=== PATIENT | male | born 1935 | race Two or more races ===

== ENCOUNTER 2018-04-15 14:14 | Inpatient (IN) | payer MEDICARE, OTHER ==
[~2018-04-15] VITALS: Ht 167.6 cm; Wt 59.1 kg
[~2018-04-15 14:14] MED LIST: CLOP75TA35 PO; GLIM4TAB79 PO; LISI10TA4 PO; METF500T PO; METO25TA6 PO; OMEP20CA10 PO; OXCA150T PO
[2018-04-15 14:38] LABS: BASOPHILS # (AUTO) 0.1 X10'3 (0-0.2); BASOPHILS % (AUTO) 0.8 % (0-1); EOSINOPHILS # (AUTO) 0.5 X10'3 (0-0.9); EOSINOPHILS % (AUTO) 5.3 % (0-6); HEMATOCRIT 34.9 % (42.0-52.0); HEMOGLOBIN 11.6 g/dl (14.0-17.9); LYMPHOCYTES # (AUTO) 1.6 X10'3 (1.1-4.8); LYMPHOCYTES % (AUTO) 16.5 % (21-51); MEAN CORPUSCULAR HGB CONC 33.3 % (33.0-36.5); MEAN CORPUSCULAR VOLUME 84.1 FL (78-98); MEAN PLATELET VOLUME 8.5 FL (7.4-10.4); MONOCYTES # (AUTO) 0.7 X10'3 (0-0.9); MONOCYTES % (AUTO) 7.5 % (2-12); NEUTROPHILS # (AUTO) 6.8 X10'3 (1.8-7.7); NEUTROPHILS % (AUTO) 69.9 % (42-75); PLATELET COUNT 149 X10'3 (140-440); RED BLOOD COUNT 4.15 X10'6 (4.70-6.10); RED CELL DISTRIBUTION WIDTH 15.4 % (11.5-14.5); WHITE BLOOD COUNT 9.7 X10'3 (4.5-11.0)
[2018-04-15 14:48] LABS: INR 0.9 INR; PARTIAL THROMBOPLASTIN TIME 25 SECONDS (22-32); PROTHROMBIN TIME 9.6 SECONDS (9.0-12.0)
[2018-04-15 14:53] LABS: ALANINE AMINOTRANSFERASE 23 U/L (12-78); ALBUMIN 3.5 G/DL (3.4-5.0); ALKALINE PHOSPHATASE 62 IU/L (46-116); ANION GAP 12 (8-16); ASPARTATE AMINO TRANSFERASE 13 U/L (10-37); BILIRUBIN,TOTAL 0.3 MG/DL (0.1-1.0); BLOOD UREA NITROGEN 10 MG/DL (7-18); BUN/CREATININE RATIO 9.7 (5.4-32.0); CALCIUM 9.3 MG/DL (8.5-10.1); CHLORIDE 99 MMOL/L (99-107); CREATININE 1.03 MG/DL (0.60-1.10); GLUCOSE 145 MG/DL (70-104); POTASSIUM 3.9 MMOL/L (3.5-5.1); SODIUM 135 MMOL/L (135-145); TOTAL PROTEIN 7.1 G/DL (6.4-8.2); eGFR 69 ML/MIN
[2018-04-15 14:57] LABS: TROPONIN I 0.08 NG/ML (0.0-0.05)
[2018-04-15] MEDS ORDERED: ondansetron/PF 4mg/2ml inj IV PRN (15:25)
[2018-04-15] MEDS ORDERED: mag hydrox/Alum hydrox/simeth 30ml oral suspension PO PRN (15:25)
[2018-04-15] MEDS ORDERED: magnesium hydroxide 30ml (MOM) UD suspension PO PRN (15:25)
[2018-04-15] MEDS ORDERED: acetaminophen 325mg tablet PO PRN (15:25)
[2018-04-15] MEDS ORDERED: METO25TA6 PO (15:29)
[2018-04-15] MEDS ORDERED: ATOR20TA PO (15:29)
[2018-04-15] MEDS ORDERED: OXCA300T PO (15:29)
[2018-04-15 15:47] LABS: CHOL/HDL RATIO 4.8 (0.00-4.99); CHOLESTEROL 252 MG/DL (0-200); HDL CHOLESTEROL 52 MG/DL (35-60); LDL CHOLESTEROL 176 MG/DL (50-100); TRIGLYCERIDES 139 MG/DL (20-135)
[2018-04-15] MEDS ORDERED: aspirin 81mg tablet.DR PO ONE (15:55)
[2018-04-15 18:00] VITALS: BP 161/68
[2018-04-15] MEDS: normal saline 1000ml 1,000 ML IV SCH (18:56)
[2018-04-15] MEDS ORDERED: non-formulary drug (Omeprazole 1 CAP) PO SCH (20:00)
[2018-04-15 22:00] VITALS: BP 149/66
[2018-04-15] MEDS: oxcarbazepine 150mg tablet PO SCH (22:10)
[2018-04-15] MEDS: pantoprazole 40mg Tablet.DR PO SCH (22:10)
[2018-04-15] MEDS: heparin, porcine 5000 units/ml vial SQ SCH (22:17)
[2018-04-15] MEDS: metFORMIN 500mg tablet PO SCH (22:24)
[2018-04-16 02:00] VITALS: BP 128/64
[2018-04-16 05:00] VITALS: BP 120/60
[2018-04-16] MEDS: normal saline 1000ml 1,000 ML IV SCH ×2 (05:00→11:22)
[2018-04-16 06:41] LABS: BASOPHILS % (AUTO) 0.3 % (0-1); EOSINOPHILS # (AUTO) 0.6 X10'3 (0-0.9); EOSINOPHILS % (AUTO) 7.3 % (0-6); HEMATOCRIT 31.4 % (42.0-52.0); HEMOGLOBIN 10.5 g/dl (14.0-17.9); LYMPHOCYTES % (AUTO) 12.2 % (21-51); MEAN CORPUSCULAR HEMOGLOBIN 28.3 PG (27.0-31.0); MEAN CORPUSCULAR HGB CONC 33.4 % (33.0-36.5); MEAN CORPUSCULAR VOLUME 84.7 FL (78-98); MEAN PLATELET VOLUME 8.8 FL (7.4-10.4); MONOCYTES # (AUTO) 0.5 X10'3 (0-0.9); MONOCYTES % (AUTO) 6.1 % (2-12); NEUTROPHILS # (AUTO) 6.3 X10'3 (1.8-7.7); NEUTROPHILS % (AUTO) 74.1 % (42-75); PLATELET COUNT 120 X10'3 (140-440); RED CELL DISTRIBUTION WIDTH 15.1 % (11.5-14.5); WHITE BLOOD COUNT 8.5 X10'3 (4.5-11.0)
[2018-04-16 06:50] LABS: ANION GAP 10 (8-16); BLOOD UREA NITROGEN 6 MG/DL (7-18); BUN/CREATININE RATIO 7.1 (5.4-32.0); CALCIUM 8.3 MG/DL (8.5-10.1); CHLORIDE 101 MMOL/L (99-107); CREATININE 0.85 MG/DL (0.60-1.10); GLUCOSE 94 MG/DL (70-104); POTASSIUM 3.5 MMOL/L (3.5-5.1); SODIUM 136 MMOL/L (135-145); TOTAL CARBON DIOXIDE 25.1 MMOL/L (24-32); eGFR 87 ML/MIN
[2018-04-16] MEDS: aspirin 81mg tablet.DR PO SCH (08:00)
[2018-04-16] MEDS: pantoprazole 40mg Tablet.DR PO SCH ×2 (08:00→20:00)
[2018-04-16] MEDS: atorvastatin 20mg tablet PO SCH (08:00)
[2018-04-16] MEDS: oxcarbazepine 150mg tablet PO SCH ×2 (08:00→20:00)
[2018-04-16] MEDS: clopidogrel 75mg tablet PO SCH (08:00)
[2018-04-16] MEDS: metFORMIN 500mg tablet PO SCH ×2 (08:00→20:00)
[2018-04-16] MEDS: heparin, porcine 5000 units/ml vial SQ SCH ×2 (08:24→20:25)
[2018-04-16] MEDS ORDERED: aspirin 300mg supp.rect RC ONE (08:45)
[2018-04-16 09:00] VITALS: BP 142/62
[2018-04-16 15:00] VITALS: BP 125/59
[2018-04-16 18:00] VITALS: BP 122/59
[2018-04-16] MEDS: dextrose 5%-normal saline 1,000 ML IV SCH (18:10)
[2018-04-16 22:00] VITALS: BP 155/66
[2018-04-17 02:00] VITALS: BP 166/70
[2018-04-17] MEDS: dextrose 5%-normal saline 1,000 ML IV SCH (05:40)
[2018-04-17 06:00] VITALS: BP 174/73
[2018-04-17 06:16] LABS: BASOPHILS % (AUTO) 0.3 % (0-1); EOSINOPHILS # (AUTO) 0.7 X10'3 (0-0.9); EOSINOPHILS % (AUTO) 9.9 % (0-6); HEMATOCRIT 31.9 % (42.0-52.0); HEMOGLOBIN 10.7 g/dl (14.0-17.9); LYMPHOCYTES # (AUTO) 0.8 X10'3 (1.1-4.8); LYMPHOCYTES % (AUTO) 12.5 % (21-51); MEAN CORPUSCULAR HEMOGLOBIN 28.2 PG (27.0-31.0); MEAN CORPUSCULAR HGB CONC 33.5 % (33.0-36.5); MEAN CORPUSCULAR VOLUME 83.9 FL (78-98); MEAN PLATELET VOLUME 9.1 FL (7.4-10.4); MONOCYTES # (AUTO) 0.5 X10'3 (0-0.9); NEUTROPHILS # (AUTO) 4.6 X10'3 (1.8-7.7); NEUTROPHILS % (AUTO) 69.3 % (42-75); PLATELET COUNT 102 X10'3 (140-440); RED BLOOD COUNT 3.79 X10'6 (4.70-6.10); RED CELL DISTRIBUTION WIDTH 15.6 % (11.5-14.5); WHITE BLOOD COUNT 6.6 X10'3 (4.5-11.0)
[2018-04-17 06:26] LABS: ALBUMIN 2.9 G/DL (3.4-5.0); ANION GAP 11 (8-16); BLOOD UREA NITROGEN 4 MG/DL (7-18); BUN/CREATININE RATIO 5.3 (5.4-32.0); CALCIUM 8.1 MG/DL (8.5-10.1); CHLORIDE 104 MMOL/L (99-107); CREATININE 0.75 MG/DL (0.60-1.10); GLUCOSE 132 MG/DL (70-104); POTASSIUM 3.2 MMOL/L (3.5-5.1); SODIUM 139 MMOL/L (135-145); TOTAL CARBON DIOXIDE 24.1 MMOL/L (24-32); eGFR > 90 ML/MIN
[2018-04-17] MEDS ORDERED: potassium Cl 20 mEq SR tablet PO PRN ×2 (07:00)
[2018-04-17] MEDS ORDERED: potassium Cl 40MEQ/NS 500ml 500 ML IV PRN ×2 (07:00)
[2018-04-17] MEDS ORDERED: LIDOcaine 1% 30ml vial 5 ML in potassium Cl 40MEQ/NS 500ml 500 ML IV ONE (07:20)
[2018-04-17] MEDS: heparin, porcine 5000 units/ml vial SQ SCH ×2 (08:00→20:00)
[2018-04-17 08:30] VITALS: BP 177/80
[2018-04-17] MEDS: metFORMIN 500mg tablet PO SCH ×2 (08:45→20:28)
[2018-04-17] MEDS: aspirin 81mg tablet.DR PO SCH (08:45)
[2018-04-17] MEDS: oxcarbazepine 150mg tablet PO SCH ×2 (08:45→20:28)
[2018-04-17] MEDS: pantoprazole 40mg Tablet.DR PO SCH ×2 (08:45→20:28)
[2018-04-17] MEDS: atorvastatin 20mg tablet PO SCH (08:45)
[2018-04-17] MEDS: clopidogrel 75mg tablet PO SCH (08:45)
[2018-04-17 14:13] VITALS: BP 162/69
[2018-04-17 18:00] VITALS: BP 160/68
[2018-04-17 22:00] VITALS: BP 181/80
[2018-04-18 02:05] VITALS: BP 162/77
[2018-04-18 05:40] LABS: BASOPHILS % (AUTO) 0.4 % (0-1); EOSINOPHILS # (AUTO) 0.6 X10'3 (0-0.9); EOSINOPHILS % (AUTO) 9.7 % (0-6); HEMOGLOBIN 10.8 g/dl (14.0-17.9); LYMPHOCYTES # (AUTO) 0.7 X10'3 (1.1-4.8); LYMPHOCYTES % (AUTO) 12.1 % (21-51); MEAN CORPUSCULAR HEMOGLOBIN 28.4 PG (27.0-31.0); MEAN CORPUSCULAR HGB CONC 33.8 % (33.0-36.5); MEAN PLATELET VOLUME 8.8 FL (7.4-10.4); MONOCYTES # (AUTO) 0.5 X10'3 (0-0.9); MONOCYTES % (AUTO) 8.8 % (2-12); NEUTROPHILS # (AUTO) 4.1 X10'3 (1.8-7.7); PLATELET COUNT 102 X10'3 (140-440); RED BLOOD COUNT 3.81 X10'6 (4.70-6.10); RED CELL DISTRIBUTION WIDTH 15.3 % (11.5-14.5)
[2018-04-18 06:00] VITALS: BP 159/73
[2018-04-18 06:20] LABS: ALBUMIN 2.8 G/DL (3.4-5.0); ANION GAP 9 (8-16); BLOOD UREA NITROGEN 4 MG/DL (7-18); BUN/CREATININE RATIO 4.4 (5.4-32.0); CHLORIDE 102 MMOL/L (99-107); CREATININE 0.91 MG/DL (0.60-1.10); GLUCOSE 101 MG/DL (70-104); MAGNESIUM 1.6 MG/DL (1.5-2.4); POTASSIUM 3.4 MMOL/L (3.5-5.1); SODIUM 136 MMOL/L (135-145); TOTAL CARBON DIOXIDE 24.6 MMOL/L (24-32); eGFR 80 ML/MIN
[2018-04-18] MEDS ORDERED: LIDOcaine 1% 30ml vial 5 ML in potassium Cl 40MEQ/NS 500ml 500 ML IV PRN (06:40)
[2018-04-18] MEDS: heparin, porcine 5000 units/ml vial SQ SCH (08:00)
[2018-04-18] MEDS ORDERED: metoprolol tartrate 25mg tablet PO SCH (08:00)
[2018-04-18 08:20] VITALS: BP 136/75
[2018-04-18] MEDS: pantoprazole 40mg Tablet.DR PO SCH (08:20)
[2018-04-18] MEDS: clopidogrel 75mg tablet PO SCH (08:20)
[2018-04-18] MEDS: atorvastatin 20mg tablet PO SCH (08:20)
[2018-04-18] MEDS: metFORMIN 500mg tablet PO SCH (08:20)
[2018-04-18] MEDS: aspirin 81mg tablet.DR PO SCH (08:20)
[2018-04-18] MEDS: oxcarbazepine 150mg tablet PO SCH (08:21)
[2018-04-18 12:07] VITALS: BP 151/63
== END 2018-04-18 13:35 | DRG 65 ==
LOC: ER 14:15 → ED HOLD 15:22 → EDBEDREQ 15:39 → ORTHO 4S 17:49
PROVIDERS: ADMIT Family Medicine; ATTEND Internal Medicine
DX: I63.9 Cerebral infarction, unspecified (principal); G81.94 Hemiplegia, unspecified affecting left nondominant side; R29.810 Facial weakness; K21.9 Gastro-esophageal reflux disease without esophagitis; I10 Essential (primary) hypertension; E78.5 Hyperlipidemia, unspecified; G40.909 Epilepsy, unspecified, not intractable, without status epilepticus; E11.65 Type 2 diabetes mellitus with hyperglycemia; G89.29 Other chronic pain; E87.6 Hypokalemia; R47.9 Unspecified speech disturbances; R13.10 Dysphagia, unspecified; R74.8 Abnormal levels of other serum enzymes; I25.10 Atherosclerotic heart disease of native coronary artery without angina pectoris; Z90.49 Acquired absence of other specified parts of digestive tract; Z79.899 Other long term (current) drug therapy; Z79.84 Long term (current) use of oral hypoglycemic drugs; Z79.02 Long term (current) use of antithrombotics/antiplatelets; Z85.46 Personal history of malignant neoplasm of prostate; Z86.73 Personal history of transient ischemic attack (TIA), and cerebral infarction without residual deficits; Z83.2 Family history of diseases of the blood and blood-forming organs and certain disorders involving the immune mechanism; Z82.49 Family history of ischemic heart disease and other diseases of the circulatory system; Z80.0 Family history of malignant neoplasm of digestive organs; Z80.6 Family history of leukemia; Z83.71 Family history of colonic polyps
CPT/HCPCS: 36415; 70450; 70544; 70551; 71045; 80048; 80053; 80061; 82948; 83036; 83735; 84484; 85025; 85610; 85730; 87070; 92523; 92616; 93005; 93306; 93880; 97110; 97112; 97116; 97162; 97530; A4565; J1644; J3480; J3490; J7030; J7042

== ENCOUNTER 2018-05-26 07:15 | Observation (INO) | payer MEDICARE, OTHER ==
[2018-05-26] VITALS (10 sets, daily range): BP systolic 151–175; BP diastolic 76–93
[~2018-05-26] VITALS: Ht 167.6 cm; Wt 66.3 kg
[~2018-05-26 07:15] MED LIST changes: +ATOR20TA PO; -OXCA150T PO; +OXCA300T PO
[2018-05-26] MEDS ORDERED: normal saline 1000ml 1,000 ML IV ONE ×2 (07:45→09:20)
[2018-05-26] MEDS ORDERED: dextrose 5%-normal saline 1,000 ML IV ONE ×2 (08:05→08:25)
[2018-05-26 08:18] LABS: BASOPHILS % (AUTO) 0.4 % (0-1); EOSINOPHILS # (AUTO) 0.3 X10'3 (0-0.9); EOSINOPHILS % (AUTO) 3.3 % (0-6); HEMOGLOBIN 11.1 g/dl (14.0-17.9); LYMPHOCYTES # (AUTO) 1.4 X10'3 (1.1-4.8); LYMPHOCYTES % (AUTO) 13.3 % (21-51); MEAN CORPUSCULAR HEMOGLOBIN 28.9 PG (27.0-31.0); MEAN CORPUSCULAR HGB CONC 33.6 % (33.0-36.5); MEAN CORPUSCULAR VOLUME 86.1 FL (78-98); MEAN PLATELET VOLUME 8.7 FL (7.4-10.4); MONOCYTES # (AUTO) 0.6 X10'3 (0-0.9); PLATELET COUNT 146 X10'3 (140-440); RED BLOOD COUNT 3.83 X10'6 (4.70-6.10); WHITE BLOOD COUNT 10.4 X10'3 (4.5-11.0)
[2018-05-26 08:27] LABS: ALANINE AMINOTRANSFERASE 34 U/L (12-78); ALBUMIN 2.7 G/DL (3.4-5.0); ALBUMIN/GLOBULIN RATIO 0.6 (1.1-1.5); ALKALINE PHOSPHATASE 358 IU/L (46-116); ANION GAP 12 (8-16); ASPARTATE AMINO TRANSFERASE 32 U/L (10-37); BILIRUBIN,TOTAL 0.4 MG/DL (0.1-1.0); BLOOD UREA NITROGEN 25 MG/DL (7-18); BUN/CREATININE RATIO 26.9 (5.4-32.0); CHLORIDE 103 MMOL/L (99-107); CREATININE 0.93 MG/DL (0.60-1.10); GLUCOSE 157 MG/DL (70-104); POTASSIUM 3.7 MMOL/L (3.5-5.1); SODIUM 139 MMOL/L (135-145); TOTAL CARBON DIOXIDE 24.3 MMOL/L (24-32); TOTAL PROTEIN 7.3 G/DL (6.4-8.2); eGFR 78 ML/MIN
[2018-05-26 10:25] LABS: CLARITY,URINE CLEAR (Clear); COLOR,URINE YELLOW (Yellow); GLUCOSE, URINE NEGATIVE (Neg); KETONES,URINE 15 mg/dl (Neg); LEUKOCYTE ESTERASE ,URINE NEGATIVE (Neg); NITRITES, URINE NEGATIVE (Neg); OCCULT BLOOD,URINE NEGATIVE (Neg); PROTEIN,URINE TRACE mg/dl (Neg)
[2018-05-26 10:29] LABS: UA COLLECTION TYPE STRAIGHT CATH
[2018-05-26 10:31] LABS: BACTERIA,URINE FEW /HPF (Neg); MUCUS STRANDS MODERATE /LPF (Neg); RBC,URINE 0-2 /HPF (0-2); SQUAMOUS EPITHELIAL CELL,UR MODERATE /LPF (FEW); WBC,URINE 0-4 /HPF (0-4)
[2018-05-26] MEDS ORDERED: tranexamic acid 100mg/ml inj. TP ONE (12:15)
[2018-05-26] MEDS ORDERED: oxymetazoline 15 ML nasal spray NS ONE (12:15)
[2018-05-26] MEDS ORDERED: LIDOcaine Viscous 15ml cup MM ONE (12:40)
[2018-05-26] MEDS ORDERED: LIDOcaine Viscous 15ml cup MM PRN (13:00)
[2018-05-26 13:20] LABS: BASOPHILS % (AUTO) 0.4 % (0-1); EOSINOPHILS # (AUTO) 0.3 X10'3 (0-0.9); EOSINOPHILS % (AUTO) 2.7 % (0-6); HEMATOCRIT 33.1 % (42.0-52.0); LYMPHOCYTES # (AUTO) 1.5 X10'3 (1.1-4.8); LYMPHOCYTES % (AUTO) 13.6 % (21-51); MEAN CORPUSCULAR HEMOGLOBIN 28.6 PG (27.0-31.0); MEAN CORPUSCULAR HGB CONC 33.1 % (33.0-36.5); MEAN CORPUSCULAR VOLUME 86.3 FL (78-98); MEAN PLATELET VOLUME 9.3 FL (7.4-10.4); MONOCYTES # (AUTO) 0.6 X10'3 (0-0.9); MONOCYTES % (AUTO) 5.3 % (2-12); NEUTROPHILS # (AUTO) 8.5 X10'3 (1.8-7.7); PLATELET COUNT 145 X10'3 (140-440); RED BLOOD COUNT 3.84 X10'6 (4.70-6.10); RED CELL DISTRIBUTION WIDTH 15.8 % (11.5-14.5); WHITE BLOOD COUNT 10.9 X10'3 (4.5-11.0)
[2018-05-26] MEDS ORDERED: tranexamic acid 100mg/ml inj. IV ONE (13:20)
[2018-05-26] MEDS ORDERED: tranexamic acid inj. 660 MG in normal saline 100ml IV soln 93.4 ML IV ONE (13:45)
[2018-05-26] MEDS ORDERED: ondansetron/PF 4mg/2ml inj IV ONE (14:20)
[2018-05-26] MEDS ORDERED: clindamycin phosphate inj 300 MG in dextrose 5%-water 50ml 48 ML IV SCH (16:00)
[2018-05-26] MEDS ORDERED: magnesium hydroxide 30ml (MOM) UD suspension PO PRN (16:10)
[2018-05-26] MEDS ORDERED: acetaminophen 325mg tablet PO PRN (16:10)
[2018-05-26] MEDS ORDERED: morphine 4 MG/ML inj SYRINge IV PRN ×2 (16:10)
[2018-05-26] MEDS ORDERED: mag hydrox/Alum hydrox/simeth 30ml oral suspension PO PRN (16:10)
[2018-05-26] MEDS ORDERED: ondansetron/PF 4mg/2ml inj IV PRN (16:10)
[2018-05-26] MEDS ORDERED: METO25TA6 PO (16:12)
[2018-05-26] MEDS ORDERED: ONDA4TAB6 PO (16:17)
[2018-05-26] MEDS ORDERED: ACET-2119 PO (16:17)
[2018-05-26] MEDS ORDERED: MESSAGE TO PHARMACY PO ONE (18:45)
[2018-05-26] MEDS ORDERED: insulin Lispro (HumaLOG) vial - multi-dose SQ SCH (18:45)
[2018-05-26] MEDS ORDERED: glucagon, human recombinant 1mg kit SUBCUT PRN (18:45)
[2018-05-26] MEDS ORDERED: dextrose ORAL solution 15 GM/59 ML bottle PO PRN ×2 (18:45)
[2018-05-26] MEDS ORDERED: dextrose 50%-water 50ml dispensing syringe IV PRN ×2 (18:45)
[2018-05-26] MEDS ORDERED: fentaNYL/PF 50MCG/1 ML 2ML syringe ONE (19:18)
[2018-05-26] MEDS ORDERED: MIDAZolam 5mg/5ml vial ONE (19:18)
[2018-05-26] MEDS ORDERED: LIDOcaine Viscous 15ml cup ONE (19:18)
[2018-05-26] MEDS: oxcarbazepine 150mg tablet PO SCH (20:00)
[2018-05-26] MEDS ORDERED: non-formulary drug (Ondansetron Hcl (Zofran) 1 TAB) PO SCH (20:00)
[2018-05-26] MEDS: pantoprazole 40mg Tablet.DR PO SCH (20:00)
[2018-05-26] MEDS ORDERED: metoprolol tartrate 25mg tablet PO SCH (20:00)
[2018-05-26] MEDS: acetaminophen 325mg tablet PO SCH (20:00)
[2018-05-26] MEDS ORDERED: ceFAZolin 1GM/D5W- ADD-VANTAGE 50 ML IV SCH (20:55)
[2018-05-26] MEDS: insulin glargine (Lantus) pen - multi-dose SQ SCH (21:00)
[2018-05-26] MEDS: atorvastatin 20mg tablet PO SCH (21:00)
[2018-05-26] MEDS: normal saline 1000ml 1,000 ML IV SCH (22:16)
[2018-05-26] MEDS: ceFAZolin 1GM/D5W- ADD-VANTAGE 50 ML IV SCH (23:11)
[2018-05-26] MEDS ORDERED: morphine 2 MG/ML inj. syringe IV PRN ×2 (23:30)
[2018-05-27 00:11] VITALS: BP 148/82
[2018-05-27] MEDS: ceFAZolin 1GM/D5W- ADD-VANTAGE 50 ML IV SCH (04:56)
[2018-05-27] MEDS ORDERED: ceFAZolin 1GM/D5W- ADD-VANTAGE 50 ML IV ONE (05:00)
[2018-05-27 05:06] LABS: BASOPHILS % (AUTO) 0.2 % (0-1); EOSINOPHILS # (AUTO) 0.4 X10'3 (0-0.9); EOSINOPHILS % (AUTO) 3.2 % (0-6); HEMATOCRIT 30.1 % (42.0-52.0); HEMOGLOBIN 10.1 g/dl (14.0-17.9); LYMPHOCYTES # (AUTO) 1.2 X10'3 (1.1-4.8); LYMPHOCYTES % (AUTO) 8.3 % (21-51); MEAN CORPUSCULAR HEMOGLOBIN 28.4 PG (27.0-31.0); MEAN CORPUSCULAR HGB CONC 33.4 % (33.0-36.5); MEAN PLATELET VOLUME 8.7 FL (7.4-10.4); MONOCYTES # (AUTO) 0.8 X10'3 (0-0.9); MONOCYTES % (AUTO) 5.4 % (2-12); NEUTROPHILS # (AUTO) 11.6 X10'3 (1.8-7.7); NEUTROPHILS % (AUTO) 82.9 % (42-75); PLATELET COUNT 155 X10'3 (140-440); RED BLOOD COUNT 3.54 X10'6 (4.70-6.10); RED CELL DISTRIBUTION WIDTH 15.6 % (11.5-14.5)
[2018-05-27 05:35] LABS: ALBUMIN 2.6 G/DL (3.4-5.0); ANION GAP 15 (8-16); BLOOD UREA NITROGEN 10 MG/DL (7-18); BUN/CREATININE RATIO 13.7 (5.4-32.0); CALCIUM 8.6 MG/DL (8.5-10.1); CHLORIDE 100 MMOL/L (99-107); CREATININE 0.73 MG/DL (0.60-1.10); GLUCOSE 178 MG/DL (70-104); POTASSIUM 3.3 MMOL/L (3.5-5.1); SODIUM 136 MMOL/L (135-145); TOTAL CARBON DIOXIDE 20.9 MMOL/L (24-32); eGFR > 90 ML/MIN
[2018-05-27 05:54] VITALS: BP 158/93
[2018-05-27 06:00] VITALS: BP 158/93
[2018-05-27] MEDS: oxcarbazepine 150mg tablet PO SCH ×2 (07:57→21:50)
[2018-05-27] MEDS: lisinopril 10 MG tablet PO SCH (07:57)
[2018-05-27] MEDS: metoprolol tartrate 12.5mg (1/2 tablet) PO SCH ×2 (07:57→21:50)
[2018-05-27] MEDS: pantoprazole 40mg Tablet.DR PO SCH ×2 (07:57→20:00)
[2018-05-27] MEDS: acetaminophen 325mg tablet PO SCH (07:58)
[2018-05-27 10:00] VITALS: BP 116/83
[2018-05-27] MEDS ORDERED: potassium Cl 20 mEq SR tablet PO PRN ×2 (11:00)
[2018-05-27] MEDS ORDERED: magnesium 4gm in 100ml NS 100 ML IV PRN (11:00)
[2018-05-27] MEDS ORDERED: magnesium 1gm/100ml D5W IVPB 100 ML IV PRN (11:00)
[2018-05-27] MEDS ORDERED: potassium Cl 40MEQ/250ML bag 250 ML IV PRN ×2 (11:00)
[2018-05-27] MEDS: K and/or MAG REPLACEMENT MC SCH (11:00)
[2018-05-27] MEDS ORDERED: potassium Cl 40MEQ/NS 500ml 500 ML IV PRN (11:00)
[2018-05-27] MEDS: potassium Cl 40MEQ/NS 500ml 500 ML IV PRN (12:51)
[2018-05-27] MEDS: insulin regular, human vial - multi-dose SQ SCH ×2 (18:04→22:18)
[2018-05-27] MEDS: normal saline 1000ml 1,000 ML IV SCH ×3 (20:02→22:53)
[2018-05-27] MEDS ORDERED: acetaminophen 325mg/10.15ml oral unit dose solution PO PRN (21:50)
[2018-05-27] MEDS: atorvastatin 20mg tablet PO SCH (21:50)
[2018-05-27] MEDS: acetaminophen 325mg/10.15ml oral unit dose solution PO SCH (21:50)
[2018-05-27 22:00] VITALS: BP 140/61
[2018-05-27] MEDS: insulin glargine (Lantus) pen - multi-dose SQ SCH (22:17)
[2018-05-28] MEDS: insulin regular, human vial - multi-dose SQ SCH ×3 (02:56→22:20)
[2018-05-28 06:57] VITALS: BP 159/83
[2018-05-28] MEDS: K and/or MAG REPLACEMENT MC SCH (07:02)
[2018-05-28 07:35] LABS: BASOPHILS # (AUTO) 0.1 X10'3 (0-0.2); BASOPHILS % (AUTO) 0.4 % (0-1); EOSINOPHILS # (AUTO) 0.6 X10'3 (0-0.9); EOSINOPHILS % (AUTO) 4.7 % (0-6); HEMATOCRIT 27.9 % (42.0-52.0); HEMOGLOBIN 9.4 g/dl (14.0-17.9); LYMPHOCYTES # (AUTO) 1.3 X10'3 (1.1-4.8); MEAN CORPUSCULAR HEMOGLOBIN 28.4 PG (27.0-31.0); MEAN CORPUSCULAR HGB CONC 33.7 % (33.0-36.5); MEAN CORPUSCULAR VOLUME 84.3 FL (78-98); MEAN PLATELET VOLUME 9.6 FL (7.4-10.4); MONOCYTES # (AUTO) 0.8 X10'3 (0-0.9); MONOCYTES % (AUTO) 6.9 % (2-12); NEUTROPHILS # (AUTO) 9.4 X10'3 (1.8-7.7); PLATELET COUNT 148 X10'3 (140-440); RED BLOOD COUNT 3.31 X10'6 (4.70-6.10); RED CELL DISTRIBUTION WIDTH 14.9 % (11.5-14.5); WHITE BLOOD COUNT 12.2 X10'3 (4.5-11.0)
[2018-05-28 07:49] LABS: ALBUMIN 2.4 G/DL (3.4-5.0); ANION GAP 10 (8-16); BLOOD UREA NITROGEN 6 MG/DL (7-18); BUN/CREATININE RATIO 10.2 (5.4-32.0); CALCIUM 8.3 MG/DL (8.5-10.1); CHLORIDE 99 MMOL/L (99-107); CREATININE 0.59 MG/DL (0.60-1.10); GLUCOSE 110 MG/DL (70-104); MAGNESIUM 1.1 MG/DL (1.5-2.4); SODIUM 133 MMOL/L (135-145); TOTAL CARBON DIOXIDE 23.8 MMOL/L (24-32); eGFR > 90 ML/MIN
[2018-05-28 07:51] LABS: POTASSIUM 2.8 MMOL/L (3.5-5.1)
[2018-05-28] MEDS: normal saline 1000ml 1,000 ML IV SCH ×3 (08:31→14:18)
[2018-05-28] MEDS: pantoprazole 40mg Tablet.DR PO SCH ×2 (08:50→20:00)
[2018-05-28] MEDS: metoprolol tartrate 12.5mg (1/2 tablet) PO SCH ×2 (08:51→20:00)
[2018-05-28] MEDS: acetaminophen 325mg/10.15ml oral unit dose solution PO SCH ×2 (08:51→20:00)
[2018-05-28] MEDS: lisinopril 10 MG tablet PO SCH (08:51)
[2018-05-28] MEDS: oxcarbazepine 150mg tablet PO SCH ×2 (08:51→20:00)
[2018-05-28 11:14] VITALS: BP 151/77
[2018-05-28] MEDS ORDERED: bisacodyl 10mg suppository rectal RC STA (13:19)
[2018-05-28] MEDS ORDERED: tranexamic acid inj. 1,000 MG in normal saline 100ml IV soln 90 ML IV ONE (13:20)
[2018-05-28] MEDS ORDERED: naphazoline/pheniramine eye 1 DROP BOTTLE EACHEYE PRN (13:20)
[2018-05-28 17:00] VITALS: BP 114/59
[2018-05-28] MEDS: potassium Cl 40MEQ/NS 500ml 500 ML IV PRN (17:07)
[2018-05-28 20:12] VITALS: BP 146/85
[2018-05-28] MEDS ORDERED: phenylephrine 1% (X-tra strg) 15ml nasal spray NS PRN (20:25)
[2018-05-28] MEDS ORDERED: LIDOcaine 4% (40 mg/ml) topical solution 50ml MM ONE (20:25)
[2018-05-28] MEDS: insulin glargine (Lantus) pen - multi-dose SQ SCH (21:00)
[2018-05-28] MEDS: atorvastatin 20mg tablet PO SCH (21:58)
[2018-05-28 23:00] VITALS: BP 111/68
[2018-05-29] VITALS (11 sets, daily range): BP systolic 103–135; BP diastolic 44–74
[2018-05-29] MEDS: insulin regular, human vial - multi-dose SQ SCH (01:56)
[2018-05-29] MEDS: normal saline 1000ml 1,000 ML IV SCH ×2 (04:31→17:21)
[2018-05-29 06:19] LABS: BASOPHILS % (AUTO) 0.3 % (0-1); EOSINOPHILS # (AUTO) 0.6 X10'3 (0-0.9); EOSINOPHILS % (AUTO) 6.3 % (0-6); HEMOGLOBIN 7.2 g/dl (14.0-17.9); LYMPHOCYTES # (AUTO) 1.4 X10'3 (1.1-4.8); LYMPHOCYTES % (AUTO) 14.8 % (21-51); MEAN CORPUSCULAR HEMOGLOBIN 28.9 PG (27.0-31.0); MEAN CORPUSCULAR HGB CONC 34.4 % (33.0-36.5); MEAN PLATELET VOLUME 8.6 FL (7.4-10.4); MONOCYTES # (AUTO) 0.7 X10'3 (0-0.9); MONOCYTES % (AUTO) 7.8 % (2-12); NEUTROPHILS # (AUTO) 6.8 X10'3 (1.8-7.7); NEUTROPHILS % (AUTO) 70.8 % (42-75); PLATELET COUNT 130 X10'3 (140-440); RED CELL DISTRIBUTION WIDTH 15.3 % (11.5-14.5); WHITE BLOOD COUNT 9.6 X10'3 (4.5-11.0)
[2018-05-29 06:37] LABS: ALBUMIN 1.9 G/DL (3.4-5.0); ANION GAP 8 (8-16); BLOOD UREA NITROGEN 10 MG/DL (7-18); BUN/CREATININE RATIO 13.5 (5.4-32.0); CALCIUM 7.7 MG/DL (8.5-10.1); CHLORIDE 103 MMOL/L (99-107); CREATININE 0.74 MG/DL (0.60-1.10); GLUCOSE 211 MG/DL (70-104); MAGNESIUM 1.6 MG/DL (1.5-2.4); POTASSIUM 3.6 MMOL/L (3.5-5.1); SODIUM 136 MMOL/L (135-145); TOTAL CARBON DIOXIDE 24.6 MMOL/L (24-32); eGFR > 90 ML/MIN
[2018-05-29] MEDS: K and/or MAG REPLACEMENT MC SCH (07:01)
[2018-05-29] MEDS: metoprolol tartrate 12.5mg (1/2 tablet) PO SCH (08:29)
[2018-05-29] MEDS: pantoprazole 40mg Tablet.DR PO SCH (08:30)
[2018-05-29] MEDS: acetaminophen 325mg/10.15ml oral unit dose solution PO SCH (08:30)
[2018-05-29] MEDS: lisinopril 10 MG tablet PO SCH (08:30)
[2018-05-29] MEDS: oxcarbazepine 150mg tablet PO SCH (08:30)
== END 2018-05-29 19:10 | disposition home health service (06) ==
LOC: ER 07:15 → ED HOLD 16:08 → ORTHO 4S 17:35
PROVIDERS: ADMIT Internal Medicine; ATTEND Internal Medicine
DX: R13.12 Dysphagia, oropharyngeal phase (principal); D62 Acute posthemorrhagic anemia; R04.0 Epistaxis; E43 Unspecified severe protein-calorie malnutrition; E86.0 Dehydration; I63.9 Cerebral infarction, unspecified; I10 Essential (primary) hypertension; E11.9 Type 2 diabetes mellitus without complications; D72.829 Elevated white blood cell count, unspecified; Z66 Do not resuscitate; Z86.73 Personal history of transient ischemic attack (TIA), and cerebral infarction without residual deficits; Z93.1 Gastrostomy status; Z86.69 Personal history of other diseases of the nervous system and sense organs
CPT/HCPCS: 36415; 36430; 43246; 71045; 80048; 80053; 81001; 82948; 83735; 84134; 85025; 86885; 86900; 86901; 86920; 96365; 96366; 96367; 96368; 96372; 96375; 96376; 99285; A4353; A6209; A6213; A6449; G0378; J0690; J1815; J2250; J2270; J2405; J3010; J3475; J3480; J3490; J7030; J7042; J7060; P9016; G0500

== ENCOUNTER 2018-06-13 10:54 | Inpatient (IN) | payer MEDICARE, OTHER ==
[~2018-06-13] VITALS: Ht 167.6 cm; Wt 60.0 kg
[~2018-06-13 10:54] MED LIST changes: +ACET-2119 PO; -CLOP75TA35 PO; -GLIM4TAB79 PO; +ONDA4TAB6 PO
[2018-06-13] MEDS ORDERED: diatrozoate meglu/diatrozoate sod (37% iodine) 120ML oral solution PO ONE (12:15)
[2018-06-13] MEDS ORDERED: normal saline 1000ML IV soln IVB ONE (12:20)
[2018-06-13] MEDS ORDERED: diatr meglu/diatrizoate 30ml oral sol.-(3 dose) bottle PO ONE (12:50)
[2018-06-13] MEDS ORDERED: metoclopramide 5 mg/ml inj IV ONE (13:20)
[2018-06-13] MEDS ORDERED: mag hydrox/Alum hydrox/simeth 30ml oral suspension PO PRN (14:05)
[2018-06-13] MEDS ORDERED: magnesium 4gm in 100ml NS 100 ML IV PRN (14:05)
[2018-06-13] MEDS ORDERED: magnesium Cl slow-release 64mg tablet PO PRN (14:05)
[2018-06-13] MEDS ORDERED: acetaminophen 325mg tablet PO PRN (14:05)
[2018-06-13] MEDS ORDERED: ondansetron/PF 4mg/2ml inj IV PRN (14:05)
[2018-06-13] MEDS: metoclopramide 10mg/10 ml UD oral solution PEG SCH ×2 (14:05→20:52)
[2018-06-13] MEDS ORDERED: magnesium hydroxide 30ml (MOM) UD suspension PEG PRN (14:05)
[2018-06-13] MEDS ORDERED: potassium Cl 20 mEq SR tablet PO PRN ×2 (14:05)
[2018-06-13] MEDS ORDERED: potassium Cl 40MEQ/NS 500ml 500 ML IV PRN ×2 (14:05)
[2018-06-13] MEDS: normal saline 1000ml 1,000 ML IV SCH (14:28)
[2018-06-13 14:40] LABS: PARTIAL THROMBOPLASTIN TIME 31 SECONDS (22-32); PROTHROMBIN TIME 10.4 SECONDS (9.0-12.0)
[2018-06-13 14:46] LABS: ALANINE AMINOTRANSFERASE 44 U/L (12-78); ALBUMIN 2.6 G/DL (3.4-5.0); ALBUMIN/GLOBULIN RATIO 0.7 (1.1-1.5); ALKALINE PHOSPHATASE 258 IU/L (46-116); ANION GAP 10 (8-16); ASPARTATE AMINO TRANSFERASE 32 U/L (10-37); BILIRUBIN,TOTAL 0.4 MG/DL (0.1-1.0); BLOOD UREA NITROGEN 8 MG/DL (7-18); BUN/CREATININE RATIO 8.8 (5.4-32.0); CALCIUM 8.4 MG/DL (8.5-10.1); CHLORIDE 90 MMOL/L (99-107); CREATININE 0.91 MG/DL (0.60-1.10); GLUCOSE 144 MG/DL (70-104); MAGNESIUM 1.3 MG/DL (1.5-2.4); PHOSPHORUS 3.2 MG/DL (2.3-4.5); POTASSIUM 3.7 MMOL/L (3.5-5.1); SODIUM 125 MMOL/L (135-145); TOTAL CARBON DIOXIDE 25.3 MMOL/L (24-32); TOTAL PROTEIN 6.6 G/DL (6.4-8.2); eGFR 80 ML/MIN
[2018-06-13 14:49] LABS: BASOPHILS % (AUTO) 0.2 % (0-1); EOSINOPHILS # (AUTO) 0.5 X10'3 (0-0.9); EOSINOPHILS % (AUTO) 4.2 % (0-6); HEMATOCRIT 32.7 % (42.0-52.0); LYMPHOCYTES # (AUTO) 1.6 X10'3 (1.1-4.8); LYMPHOCYTES % (AUTO) 14.5 % (21-51); MEAN CORPUSCULAR HGB CONC 33.7 % (33.0-36.5); MEAN CORPUSCULAR VOLUME 86.2 FL (78-98); MEAN PLATELET VOLUME 9.9 FL (7.4-10.4); MONOCYTES # (AUTO) 0.7 X10'3 (0-0.9); MONOCYTES % (AUTO) 6.7 % (2-12); NEUTROPHILS # (AUTO) 8.2 X10'3 (1.8-7.7); NEUTROPHILS % (AUTO) 74.4 % (42-75); PLATELET COUNT 139 X10'3 (140-440); RED BLOOD COUNT 3.79 X10'6 (4.70-6.10); RED CELL DISTRIBUTION WIDTH 18.4 % (11.5-14.5); WHITE BLOOD COUNT 11.1 X10'3 (4.5-11.0)
[2018-06-13] MEDS ORDERED: CLOP75TA15 PO (14:56)
[2018-06-13 15:04] LABS: ANISOCYTOSIS 2+; PLATELET ESTIMATE DECREASED
[2018-06-13 15:05] LABS: BURR CELLS 1+
[2018-06-13 15:06] LABS: ELLIPTOCYTES FEW
[2018-06-13] MEDS: magnesium 1gm/100ml D5W IVPB 100 ML IV PRN ×2 (15:26→19:00)
[2018-06-13] MEDS: K and/or MAG REPLACEMENT MC SCH (15:29)
[2018-06-13 17:20] LABS: CLARITY,URINE CLEAR (Clear); COLOR,URINE YELLOW (Yellow); GLUCOSE, URINE NEGATIVE (Neg); KETONES,URINE NEGATIVE (Neg); LEUKOCYTE ESTERASE ,URINE NEGATIVE (Neg); NITRITES, URINE NEGATIVE (Neg); OCCULT BLOOD,URINE NEGATIVE (Neg); PROTEIN,URINE NEGATIVE (Neg)
[2018-06-13 17:22] LABS: UA COLLECTION TYPE NON-SPECIFIED
[2018-06-13 18:00] VITALS: BP 154/70
[2018-06-13] MEDS ORDERED: non-formulary drug (Oxcarbazepine 1 TAB) PO SCH (20:00)
[2018-06-13] MEDS ORDERED: non-formulary drug (Omeprazole 1 CAP) PO SCH (20:00)
[2018-06-13] MEDS ORDERED: oxcarbazepine 150mg tablet PO SCH (20:00)
[2018-06-13] MEDS: metoprolol tartrate 12.5mg (1/2 tablet) PO SCH (20:51)
[2018-06-13] MEDS: atorvastatin 20mg tablet PO SCH (20:52)
[2018-06-13] MEDS: pantoprazole 40mg Tablet.DR PO SCH (20:52)
[2018-06-13] MEDS: acetaminophen 325mg tablet PO SCH (21:04)
[2018-06-13 22:00] VITALS: BP 130/57
[2018-06-14] MEDS: metoclopramide 10mg/10 ml UD oral solution PEG SCH ×4 (01:27→21:54)
[2018-06-14 05:00] VITALS: BP 135/56
[2018-06-14 05:10] LABS: HEMATOCRIT 30.8 % (42.0-52.0); HEMOGLOBIN 10.4 g/dl (14.0-17.9); MEAN CORPUSCULAR HEMOGLOBIN 28.9 PG (27.0-31.0); MEAN CORPUSCULAR HGB CONC 33.8 % (33.0-36.5); MEAN CORPUSCULAR VOLUME 85.5 FL (78-98); WHITE BLOOD COUNT 7.3 X10'3 (4.5-11.0)
[2018-06-14 05:11] LABS: MEAN PLATELET VOLUME 9.3 FL (7.4-10.4); PLATELET COUNT 118 X10'3 (140-440); RED CELL DISTRIBUTION WIDTH 18.3 % (11.5-14.5)
[2018-06-14 05:44] LABS: ALANINE AMINOTRANSFERASE 36 U/L (12-78); ALBUMIN 2.4 G/DL (3.4-5.0); ALBUMIN/GLOBULIN RATIO 0.7 (1.1-1.5); ALKALINE PHOSPHATASE 225 IU/L (46-116); ANION GAP 8 (8-16); ASPARTATE AMINO TRANSFERASE 27 U/L (10-37); BILIRUBIN,TOTAL 0.5 MG/DL (0.1-1.0); BLOOD UREA NITROGEN 5 MG/DL (7-18); BUN/CREATININE RATIO 8.8 (5.4-32.0); CALCIUM 8.1 MG/DL (8.5-10.1); CHLORIDE 95 MMOL/L (99-107); CREATININE 0.57 MG/DL (0.60-1.10); GLUCOSE 119 MG/DL (70-104); MAGNESIUM 2.5 MG/DL (1.5-2.4); PHOSPHORUS 3.8 MG/DL (2.3-4.5); POTASSIUM 3.3 MMOL/L (3.5-5.1); SODIUM 130 MMOL/L (135-145); TOTAL CARBON DIOXIDE 26.8 MMOL/L (24-32); eGFR > 90 ML/MIN
[2018-06-14] MEDS: K and/or MAG REPLACEMENT MC SCH (08:00)
[2018-06-14 10:00] VITALS: BP 139/59
[2018-06-14] MEDS: acetaminophen 325mg tablet PO SCH ×2 (10:45→21:55)
[2018-06-14] MEDS: pantoprazole 40mg Tablet.DR PO SCH ×2 (10:45→21:55)
[2018-06-14] MEDS: lisinopril 10 MG tablet PO SCH (10:45)
[2018-06-14] MEDS: metoprolol tartrate 12.5mg (1/2 tablet) PO SCH ×2 (10:45→21:54)
[2018-06-14] MEDS: normal saline 1000ml 1,000 ML IV SCH ×2 (10:47→23:41)
[2018-06-14] MEDS ORDERED: potassium Cl oral solution 20 MEQ/15 ML PO PRN (11:20)
[2018-06-14] MEDS: potassium Cl oral solution 20 MEQ/15 ML PO PRN ×2 (15:52→21:57)
[2018-06-14 18:00] VITALS: BP 126/55
[2018-06-14] MEDS: atorvastatin 20mg tablet PO SCH (21:55)
[2018-06-14 22:00] VITALS: BP 91/58
[2018-06-15] MEDS: metoclopramide 10mg/10 ml UD oral solution PEG SCH ×3 (03:03→13:07)
[2018-06-15] MEDS: potassium Cl oral solution 20 MEQ/15 ML PO PRN (04:09)
[2018-06-15 06:00] VITALS: BP_SYST 119; BP_SYST 147; BP_DIAS 52; BP_DIAS 69
[2018-06-15 06:16] LABS: HEMATOCRIT 29.4 % (42.0-52.0); HEMOGLOBIN 9.9 g/dl (14.0-17.9); MEAN CORPUSCULAR HEMOGLOBIN 29.3 PG (27.0-31.0); MEAN CORPUSCULAR HGB CONC 33.6 % (33.0-36.5); MEAN CORPUSCULAR VOLUME 87.1 FL (78-98); MEAN PLATELET VOLUME 8.3 FL (7.4-10.4); PLATELET COUNT 109 X10'3 (140-440); RED BLOOD COUNT 3.38 X10'6 (4.70-6.10); RED CELL DISTRIBUTION WIDTH 18.4 % (11.5-14.5); WHITE BLOOD COUNT 7.7 X10'3 (4.5-11.0)
[2018-06-15 06:34] LABS: ALANINE AMINOTRANSFERASE 40 U/L (12-78); ALBUMIN 2.3 G/DL (3.4-5.0); ALBUMIN/GLOBULIN RATIO 0.7 (1.1-1.5); ALKALINE PHOSPHATASE 216 IU/L (46-116); ANION GAP 8 (8-16); ASPARTATE AMINO TRANSFERASE 29 U/L (10-37); BILIRUBIN,TOTAL 0.3 MG/DL (0.1-1.0); BLOOD UREA NITROGEN 4 MG/DL (7-18); BUN/CREATININE RATIO 6.5 (5.4-32.0); CHLORIDE 100 MMOL/L (99-107); CREATININE 0.62 MG/DL (0.60-1.10); GLUCOSE 117 MG/DL (70-104); MAGNESIUM 1.6 MG/DL (1.5-2.4); PHOSPHORUS 3.3 MG/DL (2.3-4.5); POTASSIUM 4.3 MMOL/L (3.5-5.1); SODIUM 133 MMOL/L (135-145); TOTAL CARBON DIOXIDE 25.3 MMOL/L (24-32); TOTAL PROTEIN 5.6 G/DL (6.4-8.2); eGFR > 90 ML/MIN
[2018-06-15] MEDS: pantoprazole 40mg Tablet.DR PO SCH (08:00)
[2018-06-15] MEDS: K and/or MAG REPLACEMENT MC SCH (08:00)
[2018-06-15 08:15] LABS: ANISOCYTOSIS 2+; PLATELET ESTIMATE DECREASED
[2018-06-15 08:17] LABS: BURR CELLS 1+; ELLIPTOCYTES 1+; POIKILOCYTOSIS 1+
[2018-06-15] MEDS: lisinopril 10 MG tablet PO SCH (08:28)
[2018-06-15] MEDS: acetaminophen 325mg tablet PO SCH ×2 (08:28→21:07)
[2018-06-15] MEDS: metoprolol tartrate 12.5mg (1/2 tablet) PO SCH ×2 (08:28→21:08)
[2018-06-15] MEDS: levetiracetam 250mg tablet PO SCH ×2 (08:29→21:08)
[2018-06-15 10:00] VITALS: BP 138/54
[2018-06-15] MEDS: normal saline 1000ml 1,000 ML IV SCH (13:06)
[2018-06-15] MEDS: pantoprazole 40 MG vial IV SCH (13:38)
[2018-06-15 18:00] VITALS: BP 130/60
[2018-06-15 20:59] VITALS: BP 145/67
[2018-06-15] MEDS: atorvastatin 20mg tablet PO SCH (21:06)
[2018-06-15 22:00] VITALS: BP 138/62
[2018-06-16] MEDS: normal saline 1000ml 1,000 ML IV SCH (02:41)
[2018-06-16 06:00] VITALS: BP 134/54
[2018-06-16 06:21] LABS: HEMATOCRIT 29.6 % (42.0-52.0); MEAN CORPUSCULAR HEMOGLOBIN 28.9 PG (27.0-31.0); MEAN CORPUSCULAR HGB CONC 33.8 % (33.0-36.5); MEAN CORPUSCULAR VOLUME 85.7 FL (78-98); MEAN PLATELET VOLUME 8.5 FL (7.4-10.4); PLATELET COUNT 106 X10'3 (140-440); RED BLOOD COUNT 3.45 X10'6 (4.70-6.10); RED CELL DISTRIBUTION WIDTH 18.6 % (11.5-14.5); WHITE BLOOD COUNT 7.2 X10'3 (4.5-11.0)
[2018-06-16 06:37] LABS: ALANINE AMINOTRANSFERASE 31 U/L (12-78); ALBUMIN 2.2 G/DL (3.4-5.0); ALBUMIN/GLOBULIN RATIO 0.6 (1.1-1.5); ALKALINE PHOSPHATASE 235 IU/L (46-116); ANION GAP 5 (8-16); ASPARTATE AMINO TRANSFERASE 27 U/L (10-37); BILIRUBIN,TOTAL 0.3 MG/DL (0.1-1.0); BLOOD UREA NITROGEN 5 MG/DL (7-18); BUN/CREATININE RATIO 9.1 (5.4-32.0); CALCIUM 7.9 MG/DL (8.5-10.1); CHLORIDE 101 MMOL/L (99-107); CREATININE 0.55 MG/DL (0.60-1.10); GLUCOSE 187 MG/DL (70-104); MAGNESIUM 1.5 MG/DL (1.5-2.4); PHOSPHORUS 3.4 MG/DL (2.3-4.5); POTASSIUM 3.5 MMOL/L (3.5-5.1); SODIUM 132 MMOL/L (135-145); TOTAL CARBON DIOXIDE 25.9 MMOL/L (24-32); TOTAL PROTEIN 5.8 G/DL (6.4-8.2); eGFR > 90 ML/MIN
[2018-06-16] MEDS: metoprolol tartrate 12.5mg (1/2 tablet) PO SCH (08:00)
[2018-06-16] MEDS: K and/or MAG REPLACEMENT MC SCH (08:00)
[2018-06-16] MEDS: lisinopril 10 MG tablet PO SCH (08:29)
[2018-06-16] MEDS: pantoprazole 40 MG vial IV SCH (08:29)
[2018-06-16] MEDS: levetiracetam 250mg tablet PO SCH (08:29)
[2018-06-16] MEDS: acetaminophen 325mg tablet PO SCH (08:30)
[2018-06-16] MEDS ORDERED: dextrose ORAL solution 15 GM/59 ML bottle PO PRN ×2 (09:05)
[2018-06-16] MEDS ORDERED: dextrose 50%-water 50ml dispensing syringe IV PRN ×2 (09:05)
[2018-06-16] MEDS ORDERED: glucagon, human recombinant 1mg kit SUBCUT PRN (09:05)
[2018-06-16] MEDS: insulin regular, human vial - multi-dose SQ SCH ×2 (09:40→14:31)
[2018-06-16 10:00] VITALS: BP 105/43
[2018-06-16] MEDS ORDERED: potassium Cl 20mEq in NS 1,000 ML IV SCH (10:06)
[2018-06-16] MEDS ORDERED: normal saline 500ml IV soln 500 ML IV ONE (10:10)
[2018-06-16] MEDS ORDERED: NS IV ONE (10:25)
[2018-06-16] MEDS ORDERED: MAGNESIUM IV ONE (10:25)
[2018-06-16 10:37] LABS: LIPASE 294 U/L (73-393)
[2018-06-17] MEDS ORDERED: aspirin 81mg tab.chew PO SCH (08:30)
== END 2018-06-16 16:35 | disposition home health service (06) | DRG 73 ==
LOC: ER 10:54 → ED HOLD 14:03 → ORTHO 4S 17:27
PROVIDERS: ADMIT Family Medicine; ATTEND Family Medicine
DX: E11.43 Type 2 diabetes mellitus with diabetic autonomic (poly)neuropathy (principal); N17.0 Acute kidney failure with tubular necrosis; E43 Unspecified severe protein-calorie malnutrition; E87.1 Hypo-osmolality and hyponatremia; I69.354 Hemiplegia and hemiparesis following cerebral infarction affecting left non-dominant side; E83.42 Hypomagnesemia; E11.65 Type 2 diabetes mellitus with hyperglycemia; E78.00 Pure hypercholesterolemia, unspecified; E78.5 Hyperlipidemia, unspecified; E86.0 Dehydration; G40.909 Epilepsy, unspecified, not intractable, without status epilepticus; H91.90 Unspecified hearing loss, unspecified ear; E87.6 Hypokalemia; D64.9 Anemia, unspecified; I10 Essential (primary) hypertension; K21.9 Gastro-esophageal reflux disease without esophagitis; K31.84 Gastroparesis; Z93.1 Gastrostomy status; I69.391 Dysphagia following cerebral infarction; Z79.899 Other long term (current) drug therapy; Z79.84 Long term (current) use of oral hypoglycemic drugs; Z86.14 Personal history of Methicillin resistant Staphylococcus aureus infection; Z85.46 Personal history of malignant neoplasm of prostate; Z87.442 Personal history of urinary calculi; Z87.891 Personal history of nicotine dependence; Z83.71 Family history of colonic polyps; Z82.49 Family history of ischemic heart disease and other diseases of the circulatory system; Z80.0 Family history of malignant neoplasm of digestive organs; Z80.6 Family history of leukemia; Z84.89 Family history of other specified conditions; Z68.21 Body mass index [BMI] 21.0-21.9, adult
CPT/HCPCS: 36415; 74018; 80053; 81003; 82948; 83690; 83735; 84100; 84134; 85025; 85027; 85610; 85730; 87070; 96361; 96374; 97110; 97161; 97530; 99285; A4649; A6213; A6250; A6449; C9113; J1815; J2765; J3475; J7030; J8597; Q9963

== ENCOUNTER 2018-07-06 15:23 | Inpatient (IN) | payer MEDICARE, OTHER ==
[~2018-07-06] VITALS: Ht 167.6 cm; Wt 61.0 kg
[~2018-07-06 15:23] MED LIST changes: +CLOP75TA15 PO; -OXCA300T PO; +OXCA300T16 PO
[2018-07-06] MEDS ORDERED: CefTRIAXone 2gm/D5W 50ml 50 ML IV ONE (16:55)
[2018-07-06] MEDS ORDERED: normal saline 1000ML IV soln IV ONE (16:55)
[2018-07-06 17:15] LABS: CLARITY,URINE CLEAR (Clear); COLOR,URINE YELLOW (Yellow); GLUCOSE, URINE >=1000 mg/dl (Neg); KETONES,URINE TRACE mg/dl (Neg); LEUKOCYTE ESTERASE ,URINE NEGATIVE (Neg); NITRITES, URINE NEGATIVE (Neg); OCCULT BLOOD,URINE TRACE-LYSED (Neg); PROTEIN,URINE TRACE mg/dl (Neg); UROBILINOGEN,URINE 0.2 E.U/dL (0.2-1.0)
[2018-07-06 17:22] LABS: UA COLLECTION TYPE URINAL
[2018-07-06 17:25] LABS: BACTERIA,URINE NONE SEEN /HPF (Neg); RBC,URINE 0-2 /HPF (0-2); SQUAMOUS EPITHELIAL CELL,UR NONE SEEN /LPF (FEW); WBC,URINE NONE SEEN /HPF (0-4)
[2018-07-06 17:28] LABS: BASOPHILS % (AUTO) 0.1 % (0-1); EOSINOPHILS # (AUTO) 0.2 X10'3 (0-0.9); EOSINOPHILS % (AUTO) 1.3 % (0-6); HEMATOCRIT 35.3 % (42.0-52.0); HEMOGLOBIN 11.9 g/dl (14.0-17.9); LYMPHOCYTES # (AUTO) 1.3 X10'3 (1.1-4.8); LYMPHOCYTES % (AUTO) 9.7 % (21-51); MEAN CORPUSCULAR HEMOGLOBIN 29.8 PG (27.0-31.0); MEAN CORPUSCULAR HGB CONC 33.6 % (33.0-36.5); MEAN CORPUSCULAR VOLUME 88.8 FL (78-98); MEAN PLATELET VOLUME 9.7 FL (7.4-10.4); MONOCYTES % (AUTO) 6.9 % (2-12); NEUTROPHILS # (AUTO) 11.4 X10'3 (1.8-7.7); PLATELET COUNT 210 X10'3 (140-440); RED BLOOD COUNT 3.97 X10'6 (4.70-6.10); RED CELL DISTRIBUTION WIDTH 19.7 % (11.5-14.5); WHITE BLOOD COUNT 13.9 X10'3 (4.5-11.0)
[2018-07-06 17:44] LABS: ALANINE AMINOTRANSFERASE 43 U/L (12-78); ALBUMIN 2.8 G/DL (3.4-5.0); ALBUMIN/GLOBULIN RATIO 0.8 (1.1-1.5); ALKALINE PHOSPHATASE 145 IU/L (46-116); ANION GAP 14 (8-16); ASPARTATE AMINO TRANSFERASE 17 U/L (10-37); BILIRUBIN,TOTAL 0.4 MG/DL (0.1-1.0); BLOOD UREA NITROGEN 23 MG/DL (7-18); BUN/CREATININE RATIO 23.5 (5.4-32.0); CALCIUM 8.5 MG/DL (8.5-10.1); CHLORIDE 113 MMOL/L (99-107); CREATININE 0.98 MG/DL (0.60-1.10); GLUCOSE 431 MG/DL (70-104); MAGNESIUM 1.8 MG/DL (1.5-2.4); SODIUM 153 MMOL/L (135-145); TOTAL CARBON DIOXIDE 25.8 MMOL/L (24-32); TOTAL PROTEIN 6.5 G/DL (6.4-8.2); eGFR 73 ML/MIN
[2018-07-06 17:45] LABS: ANISOCYTOSIS 2+; ELLIPTOCYTES 1+; PLATELET ESTIMATE NORMAL; POIKILOCYTOSIS 1+; SCHISTOCYTES 1+
[2018-07-06] MEDS ORDERED: LISI-600 PO (18:05)
[2018-07-06] MEDS ORDERED: CLOP75TA33 PO (18:05)
[2018-07-06] MEDS ORDERED: PANT-47 PO (18:05)
[2018-07-06] MEDS ORDERED: LEVE250T4 (18:08)
[2018-07-06] MEDS: potassium 10mEq/100ml NS w/LIDOcaine (10mg/bag) IV SCH ×2 (18:21→19:16)
[2018-07-06] MEDS ORDERED: KEP500T PO (18:22)
[2018-07-06] MEDS ORDERED: METO-292 PO (18:22)
[2018-07-06] MEDS ORDERED: normal saline 1000ml 1,000 ML IV SCH (20:01)
[2018-07-06] MEDS ORDERED: acetaminophen 325mg tablet PO PRN (20:05)
[2018-07-06] MEDS ORDERED: morphine 2 MG/ML inj. syringe IV PRN (20:05)
[2018-07-06] MEDS ORDERED: ondansetron/PF 4mg/2ml inj IV PRN (20:05)
[2018-07-06] MEDS ORDERED: bisacodyl 10mg suppository rectal RC PRN (20:05)
[2018-07-06] MEDS ORDERED: HYDROcodone/acetaminophen 5mg/325mg tablet PO PRN (20:05)
[2018-07-06] MEDS ORDERED: dextrose 50%-water 50ml dispensing syringe IV PRN ×2 (20:15)
[2018-07-06] MEDS ORDERED: MESSAGE TO PHARMACY PO ONE (20:15)
[2018-07-06] MEDS ORDERED: glucagon, human recombinant 1mg kit SUBCUT PRN (20:15)
[2018-07-06] MEDS ORDERED: dextrose ORAL solution 15 GM/59 ML bottle PO PRN ×2 (20:15)
[2018-07-06] MEDS: insulin glargine (Lantus) pen - multi-dose SQ SCH (21:30)
[2018-07-06] MEDS: insulin Lispro (HumaLOG) vial - multi-dose SQ SCH (21:32)
[2018-07-06 22:23] LABS: ALANINE AMINOTRANSFERASE 33 U/L (12-78); ALBUMIN 2.7 G/DL (3.4-5.0); ALBUMIN/GLOBULIN RATIO 0.8 (1.1-1.5); ALKALINE PHOSPHATASE 134 IU/L (46-116); ANION GAP 12 (8-16); ASPARTATE AMINO TRANSFERASE 16 U/L (10-37); BILIRUBIN,TOTAL 0.4 MG/DL (0.1-1.0); BLOOD UREA NITROGEN 17 MG/DL (7-18); BUN/CREATININE RATIO 24.6 (5.4-32.0); CALCIUM 8.4 MG/DL (8.5-10.1); CHLORIDE 116 MMOL/L (99-107); CREATININE 0.69 MG/DL (0.60-1.10); GLUCOSE 316 MG/DL (70-104); SODIUM 154 MMOL/L (135-145); TOTAL CARBON DIOXIDE 26.4 MMOL/L (24-32); TOTAL PROTEIN 6.2 G/DL (6.4-8.2); eGFR > 90 ML/MIN
[2018-07-06 23:00] VITALS: BP 169/81
[2018-07-06] MEDS ORDERED: magnesium 4gm in 100ml NS 100 ML IV PRN (23:10)
[2018-07-06] MEDS ORDERED: potassium Cl 40MEQ/NS 500ml 500 ML IV PRN ×2 (23:10)
[2018-07-06] MEDS ORDERED: potassium Cl 20 mEq SR tablet PO PRN (23:10)
[2018-07-06] MEDS: potassium Cl 20 mEq SR tablet PO PRN (23:31)
[2018-07-06] MEDS: sodium chloride 0.45% 1,000 ML IV SCH (23:32)
[2018-07-06] MEDS: metroNIDAZOLE-Flagyl 500mg/NS 100 ML IV SCH (23:35)
[2018-07-07] VITALS (7 sets, daily range): BP systolic 149–171; BP diastolic 68–85
[2018-07-07] MEDS ORDERED: ondansetron 4mg rapidly disintigrating tab PO PRN (02:00)
[2018-07-07] MEDS: potassium Cl 20 mEq SR tablet PO PRN (03:40)
[2018-07-07 05:32] LABS: BASOPHILS % (AUTO) 0.3 % (0-1); EOSINOPHILS # (AUTO) 0.4 X10'3 (0-0.9); EOSINOPHILS % (AUTO) 2.8 % (0-6); HEMATOCRIT 31.9 % (42.0-52.0); HEMOGLOBIN 10.4 g/dl (14.0-17.9); LYMPHOCYTES # (AUTO) 1.9 X10'3 (1.1-4.8); LYMPHOCYTES % (AUTO) 13.2 % (21-51); MEAN CORPUSCULAR HEMOGLOBIN 28.9 PG (27.0-31.0); MEAN CORPUSCULAR HGB CONC 32.4 % (33.0-36.5); MEAN CORPUSCULAR VOLUME 89.1 FL (78-98); MONOCYTES % (AUTO) 6.7 % (2-12); NEUTROPHILS # (AUTO) 11.2 X10'3 (1.8-7.7); PLATELET COUNT 169 X10'3 (140-440); RED BLOOD COUNT 3.58 X10'6 (4.70-6.10); RED CELL DISTRIBUTION WIDTH 19.2 % (11.5-14.5); WHITE BLOOD COUNT 14.5 X10'3 (4.5-11.0)
[2018-07-07 06:19] LABS: ALANINE AMINOTRANSFERASE 29 U/L (12-78); ALBUMIN 2.5 G/DL (3.4-5.0); ALBUMIN/GLOBULIN RATIO 0.7 (1.1-1.5); ALKALINE PHOSPHATASE 119 IU/L (46-116); ANION GAP 9 (8-16); ASPARTATE AMINO TRANSFERASE 21 U/L (10-37); BILIRUBIN,TOTAL 0.5 MG/DL (0.1-1.0); BLOOD UREA NITROGEN 16 MG/DL (7-18); BUN/CREATININE RATIO 25.8 (5.4-32.0); CALCIUM 7.9 MG/DL (8.5-10.1); CHLORIDE 113 MMOL/L (99-107); CREATININE 0.62 MG/DL (0.60-1.10); GLUCOSE 236 MG/DL (70-104); MAGNESIUM 1.5 MG/DL (1.5-2.4); POTASSIUM 3.3 MMOL/L (3.5-5.1); SODIUM 147 MMOL/L (135-145); TOTAL CARBON DIOXIDE 25.3 MMOL/L (24-32); TOTAL PROTEIN 5.9 G/DL (6.4-8.2); eGFR > 90 ML/MIN
[2018-07-07 07:43] LABS: PLATELET ESTIMATE NORMAL
[2018-07-07 07:44] LABS: ANISOCYTOSIS 2+; POIKILOCYTOSIS FEW
[2018-07-07] MEDS: docusate sod 100mg capsule PO SCH ×2 (08:00→20:00)
[2018-07-07] MEDS ORDERED: pantoprazole 40mg Tablet.DR PO SCH (08:00)
[2018-07-07] MEDS: levetiracetam 250mg tablet PO SCH ×2 (08:42→20:57)
[2018-07-07] MEDS: clopidogrel 75mg tablet PO SCH (08:43)
[2018-07-07] MEDS: metoprolol tartrate 25mg tablet PO SCH ×2 (08:43→20:58)
[2018-07-07] MEDS: lisinopril 5mg tablet PO SCH (08:43)
[2018-07-07] MEDS: diatr meglu/diatrizoate 30ml oral sol.-(3 dose) bottle PO SCH ×3 (08:43→14:50)
[2018-07-07] MEDS: metroNIDAZOLE-Flagyl 500mg/NS 100 ML IV SCH ×2 (08:44→15:31)
[2018-07-07] MEDS: CefTRIAXone/D5W-Rocephin 1gm 50 ML IV SCH (08:44)
[2018-07-07] MEDS: enoxaparin 40mg/0.4ml syringe SUBCUT SCH (08:44)
[2018-07-07] MEDS: insulin Lispro (HumaLOG) vial - multi-dose SQ SCH (09:49)
[2018-07-07] MEDS: sodium chloride 0.45% 1,000 ML IV SCH ×2 (09:54→19:10)
[2018-07-07] MEDS: potassium Cl oral solution 20 MEQ/15 ML PO PRN ×3 (09:59→20:57)
[2018-07-07] MEDS: pantoprazole 40 MG vial IV SCH (10:03)
[2018-07-07 15:31] LABS: C DIFF ANTIGEN SEE COMMENTS (NEGATIVE); C DIFF SPECIMEN=DIARRHEA? ACCEPTABLE; C DIFFICILE TOXINS A&B NEGATIVE (Neg)
[2018-07-07] MEDS: atorvastatin 20mg tablet PO SCH (20:57)
[2018-07-07] MEDS: lactobacillus rhamnosus 10,000 MMU CELLS/CAPSULE PO SCH (20:57)
[2018-07-07] MEDS: insulin glargine (Lantus) pen - multi-dose SQ SCH (21:00)
[2018-07-08] MEDS: metroNIDAZOLE-Flagyl 500mg/NS 100 ML IV SCH ×2 (00:49→10:28)
[2018-07-08 02:00] VITALS: BP 156/62
[2018-07-08] MEDS: sodium chloride 0.45% 1,000 ML IV SCH ×2 (05:10→15:41)
[2018-07-08 06:00] VITALS: BP 154/69
[2018-07-08 06:03] LABS: BASOPHILS % (AUTO) 0.4 % (0-1); EOSINOPHILS # (AUTO) 0.7 X10'3 (0-0.9); EOSINOPHILS % (AUTO) 6.5 % (0-6); HEMATOCRIT 29.9 % (42.0-52.0); HEMOGLOBIN 10.2 g/dl (14.0-17.9); LYMPHOCYTES % (AUTO) 18.6 % (21-51); MEAN CORPUSCULAR HEMOGLOBIN 30.1 PG (27.0-31.0); MEAN CORPUSCULAR VOLUME 88.4 FL (78-98); MEAN PLATELET VOLUME 11.3 FL (7.4-10.4); MONOCYTES # (AUTO) 0.7 X10'3 (0-0.9); MONOCYTES % (AUTO) 6.9 % (2-12); NEUTROPHILS # (AUTO) 7.3 X10'3 (1.8-7.7); NEUTROPHILS % (AUTO) 67.6 % (42-75); PLATELET COUNT 138 X10'3 (140-440); RED BLOOD COUNT 3.38 X10'6 (4.70-6.10); RED CELL DISTRIBUTION WIDTH 18.5 % (11.5-14.5); WHITE BLOOD COUNT 10.8 X10'3 (4.5-11.0)
[2018-07-08 06:25] LABS: ALANINE AMINOTRANSFERASE 27 U/L (12-78); ALBUMIN 2.3 G/DL (3.4-5.0); ALBUMIN/GLOBULIN RATIO 0.7 (1.1-1.5); ALKALINE PHOSPHATASE 102 IU/L (46-116); ANION GAP 9 (8-16); ASPARTATE AMINO TRANSFERASE 24 U/L (10-37); BILIRUBIN,TOTAL 0.6 MG/DL (0.1-1.0); BLOOD UREA NITROGEN 10 MG/DL (7-18); BUN/CREATININE RATIO 22.7 (5.4-32.0); CALCIUM 8.1 MG/DL (8.5-10.1); CHLORIDE 106 MMOL/L (99-107); CREATININE 0.44 MG/DL (0.60-1.10); GLUCOSE 167 MG/DL (70-104); MAGNESIUM 1.4 MG/DL (1.5-2.4); SODIUM 140 MMOL/L (135-145); TOTAL CARBON DIOXIDE 25.1 MMOL/L (24-32); TOTAL PROTEIN 5.4 G/DL (6.4-8.2); eGFR > 90 ML/MIN
[2018-07-08 06:28] LABS: POTASSIUM 2.9 MMOL/L (3.5-5.1)
[2018-07-08] MEDS: docusate sod 100mg capsule PO SCH ×2 (08:00→20:01)
[2018-07-08] MEDS: potassium Cl oral solution 20 MEQ/15 ML PO PRN ×3 (08:18→20:03)
[2018-07-08] MEDS: lactobacillus rhamnosus 10,000 MMU CELLS/CAPSULE PO SCH ×2 (08:19→20:01)
[2018-07-08] MEDS: lisinopril 5mg tablet PO SCH (08:19)
[2018-07-08] MEDS: clopidogrel 75mg tablet PO SCH (08:19)
[2018-07-08] MEDS: metoprolol tartrate 25mg tablet PO SCH ×2 (08:19→20:02)
[2018-07-08] MEDS: levetiracetam 250mg tablet PO SCH ×2 (08:19→20:03)
[2018-07-08] MEDS: CefTRIAXone/D5W-Rocephin 1gm 50 ML IV SCH (08:19)
[2018-07-08] MEDS: pantoprazole 40 MG vial IV SCH (08:19)
[2018-07-08] MEDS: enoxaparin 40mg/0.4ml syringe SUBCUT SCH (08:20)
[2018-07-08 08:33] LABS: C DIFF TOXIN (LAMP) POSITIVE (NEG)
[2018-07-08] MEDS: magnesium Cl slow-release 64mg tablet PO PRN ×2 (10:28→15:40)
[2018-07-08 11:00] VITALS: BP 135/66
[2018-07-08 15:00] VITALS: BP 133/65
[2018-07-08] MEDS: vancomycin 125mg/5ml ORAL solution 5ml UD bottle PO SCH ×2 (15:40→20:01)
[2018-07-08 19:36] VITALS: BP 138/65
[2018-07-08] MEDS: insulin glargine (Lantus) pen - multi-dose SQ SCH (21:00)
[2018-07-08] MEDS: atorvastatin 20mg tablet PO SCH (21:00)
[2018-07-09] MEDS: vancomycin 125mg/5ml ORAL solution 5ml UD bottle PO SCH ×3 (05:21→14:48)
[2018-07-09] MEDS: sodium chloride 0.45% 1,000 ML IV SCH ×2 (05:21→11:10)
[2018-07-09 06:00] VITALS: BP 167/75
[2018-07-09] MEDS: docusate sod 100mg capsule PO SCH (08:00)
[2018-07-09] MEDS: pantoprazole 40 MG vial IV SCH (09:09)
[2018-07-09] MEDS: levetiracetam 250mg tablet PO SCH (09:10)
[2018-07-09] MEDS: metoprolol tartrate 25mg tablet PO SCH (09:10)
[2018-07-09] MEDS: lactobacillus rhamnosus 10,000 MMU CELLS/CAPSULE PO SCH (09:10)
[2018-07-09] MEDS: lisinopril 5mg tablet PO SCH (09:10)
[2018-07-09] MEDS: enoxaparin 40mg/0.4ml syringe SUBCUT SCH (09:11)
[2018-07-09] MEDS: clopidogrel 75mg tablet PO SCH (09:11)
[2018-07-09 09:13] LABS: BASOPHILS % (AUTO) 0.4 % (0-1); EOSINOPHILS # (AUTO) 0.6 X10'3 (0-0.9); EOSINOPHILS % (AUTO) 7.1 % (0-6); HEMOGLOBIN 10.4 g/dl (14.0-17.9); LYMPHOCYTES # (AUTO) 1.4 X10'3 (1.1-4.8); MEAN CORPUSCULAR HEMOGLOBIN 29.7 PG (27.0-31.0); MEAN CORPUSCULAR HGB CONC 33.5 % (33.0-36.5); MEAN CORPUSCULAR VOLUME 88.6 FL (78-98); MEAN PLATELET VOLUME 11.9 FL (7.4-10.4); MONOCYTES # (AUTO) 0.6 X10'3 (0-0.9); NEUTROPHILS # (AUTO) 5.4 X10'3 (1.8-7.7); NEUTROPHILS % (AUTO) 67.5 % (42-75); PLATELET COUNT 119 X10'3 (140-440); RED BLOOD COUNT 3.51 X10'6 (4.70-6.10); RED CELL DISTRIBUTION WIDTH 18.3 % (11.5-14.5)
[2018-07-09 09:31] LABS: ALANINE AMINOTRANSFERASE 30 U/L (12-78); ALBUMIN 2.3 G/DL (3.4-5.0); ALBUMIN/GLOBULIN RATIO 0.7 (1.1-1.5); ALKALINE PHOSPHATASE 105 IU/L (46-116); ANION GAP 7 (8-16); ASPARTATE AMINO TRANSFERASE 29 U/L (10-37); BILIRUBIN,TOTAL 0.5 MG/DL (0.1-1.0); BLOOD UREA NITROGEN 8 MG/DL (7-18); CALCIUM 7.9 MG/DL (8.5-10.1); CHLORIDE 101 MMOL/L (99-107); CREATININE 0.47 MG/DL (0.60-1.10); GLUCOSE 127 MG/DL (70-104); MAGNESIUM 1.4 MG/DL (1.5-2.4); POTASSIUM 3.2 MMOL/L (3.5-5.1); SODIUM 134 MMOL/L (135-145); TOTAL CARBON DIOXIDE 25.8 MMOL/L (24-32); TOTAL PROTEIN 5.5 G/DL (6.4-8.2); eGFR > 90 ML/MIN
[2018-07-09 09:38] LABS: ANISOCYTOSIS 2+; PLATELET ESTIMATE DECREASED; POIKILOCYTOSIS FEW; POLYCHROMASIA FEW
[2018-07-09 11:00] VITALS: BP 152/69
[2018-07-09] MEDS ORDERED: insulin regular, human vial - multi-dose SQ SCH (11:09)
[2018-07-09 11:52] LABS: HEMOGLOBIN A1C 7.7 % (4.5-6.2)
[2018-07-09 15:00] VITALS: BP 139/62
[2018-07-09] MEDS ORDERED: VANC5VIA PO (15:28)
[2018-07-09] MEDS ORDERED: POTA20LI CORPAK (15:28)
[2018-07-09] MEDS ORDERED: NOVLG SQ (16:31)
== END 2018-07-09 18:10 | disposition home health service (06) | DRG 871 ==
LOC: ER 15:24 → ED HOLD 20:01 → PCU 3S 22:07
PROVIDERS: ADMIT Emergency Medicine; ATTEND Family Medicine
DX: A41.9 Sepsis, unspecified organism (principal); G93.41 Metabolic encephalopathy; A04.72 Enterocolitis due to Clostridium difficile, not specified as recurrent; E87.1 Hypo-osmolality and hyponatremia; E87.0 Hyperosmolality and hypernatremia; I69.354 Hemiplegia and hemiparesis following cerebral infarction affecting left non-dominant side; E86.0 Dehydration; E87.6 Hypokalemia; K63.89 Other specified diseases of intestine; D64.9 Anemia, unspecified; E11.65 Type 2 diabetes mellitus with hyperglycemia; E78.00 Pure hypercholesterolemia, unspecified; R35.0 Frequency of micturition; E78.5 Hyperlipidemia, unspecified; G40.909 Epilepsy, unspecified, not intractable, without status epilepticus; I37.1 Nonrheumatic pulmonary valve insufficiency; I10 Essential (primary) hypertension; K21.9 Gastro-esophageal reflux disease without esophagitis; Z66 Do not resuscitate; Z78.9 Other specified health status; I69.320 Aphasia following cerebral infarction; Z93.1 Gastrostomy status; Z74.01 Bed confinement status; Z79.02 Long term (current) use of antithrombotics/antiplatelets; Z79.84 Long term (current) use of oral hypoglycemic drugs; Z79.899 Other long term (current) drug therapy; Z87.891 Personal history of nicotine dependence; Z85.46 Personal history of malignant neoplasm of prostate; Z82.49 Family history of ischemic heart disease and other diseases of the circulatory system; Z80.0 Family history of malignant neoplasm of digestive organs; Z83.71 Family history of colonic polyps; Z80.6 Family history of leukemia; Z83.79 Family history of other diseases of the digestive system
CPT/HCPCS: 36415; 71045; 74176; 76700; 80053; 81001; 82378; 82948; 83036; 83605; 83735; 84145; 85025; 87040; 87070; 87324; 87449; 87493; 93005; 96365; 96367; 99285; A4315; A6212; A6213; A6250; C9113; J0696; J1650; J1815; J3480; J3490; J7030; Q9963